=== PATIENT | male | born 1975 | race Caucasian/White ===

== ENCOUNTER 2021-03-15 19:45 | Emergency (ER) | payer OTHER ==
[~2021-03-15] VITALS: Ht 190.5 cm; Wt 119.3 kg
[2021-03-15] MEDS ORDERED: PERCOCET 5-3251 EACH PO (22:37)
[2021-03-15] MEDS ORDERED: FLOMAX0.4 MG PO (22:37)
[2021-04-10] MEDS ORDERED: LISINOPRIL20 MG PO (15:09)
== END 2021-03-15 23:17 | disposition home or self-care (01) ==
LOC: ED 19:45
DX: N13.2 Hydronephrosis with renal and ureteral calculous obstruction (principal); Z87.891 Personal history of nicotine dependence
CPT/HCPCS: 74176; 80053; 81001; 85025; 96374; 96375; 96376; 99284-25; J1170; J2405